=== PATIENT | female | born 1975 | race Two or more races ===

== ENCOUNTER 2023-08-31 16:04 | Emergency (ER) | payer BC ==
[~2023-08-31] VITALS: Ht 154.9 cm; Wt 117.0 kg
[~2023-08-31 16:04] MED LIST: BUPR1FIL SL
[2023-08-31 16:52] VITALS: TEMP 98.6
[2023-08-31 17:30] LABS: BASOPHILS # (AUTO) 0.1 K/uL (0.0-0.2); BASOPHILS % (AUTO) 1.1 % (0.0-2.0); EOSINOPHILS # (AUTO) 0.2 K/uL (0.0-0.7); EOSINOPHILS % (AUTO) 2.8 % (0.0-6.0); HEMATOCRIT 40 % (33-45); HEMOGLOBIN 13.2 g/dL (11.5-14.8); LYMPHOCYTES # (AUTO) 1.7 K/uL (0.8-4.8); LYMPHOCYTES % (AUTO) 25.3 % (20.0-44.0); MEAN CORPUSCULAR HEMOGLOBIN 28 PG (26.0-33.0); MEAN CORPUSCULAR HGB CONC 33 g/dl (31.0-36.0); MEAN CORPUSCULAR VOLUME 85 fL (82-100); MONOCYTES # (AUTO) 0.7 K/uL (0.1-1.30); MONOCYTES % (AUTO) 11.1 % (2.0-12.0); NEUTROPHILS % (AUTO) 59.7 % (43.0-81.0); PLATELET COUNT (AUTO) 295 K/uL (150-450); RED BLOOD CELL COUNT(AUTO) 4.68 MIL/uL (4.0-5.2); RED CELL DISTRIBUTION WIDTH 15.8 % (11.5-15.0); WHITE BLOOD COUNT (AUTO) 6.7 K/uL (4.3-11.0)
[2023-08-31 17:37] LABS: CALCIUM, SERUM 8.7 mg/dL (8.5-10.1); CARBON DIOXIDE 29 mmol/L (21-32); CHLORIDE 103 mmol/L (98-107); CREATININE 0.9 mg/dL (0.6-1.3); GLUCOSE 96 mg/dL (74-106); SODIUM SERUM 134 mmol/L (136-145); UREA NITROGEN, BLOOD 12 mg/dL (7-18)
[2023-08-31 17:50] LABS: NT-PRO BNP 162 pg/mL (0-125)
[2023-08-31] MEDS ORDERED: METH750T3 PO (18:17)
[2023-08-31] MEDS ORDERED: ALBU18HF2 IH (18:17)
[2023-08-31] MEDS ORDERED: FURO20TA4 PO (18:17)
[2023-08-31] MEDS ORDERED: LAMO25TA5 PO (18:17)
[2023-08-31] MEDS ORDERED: QUET50TA PO (18:17)
[2023-08-31] MEDS ORDERED: CLON0.1T PO (18:17)
[2023-08-31] MEDS ORDERED: FLUT1DIS3 IH (18:17)
[2023-08-31] MEDS ORDERED: ONDA8TAB65 PO (18:17)
[2023-08-31] MEDS ORDERED: DOXE50CA4 PO (18:17)
[2023-08-31] MEDS: hydrALAZINE HCL IV 20 MG VIAL IV ONE (18:30)
[2023-08-31] MEDS ORDERED: hydrALAZINE HCL IV 20 MG VIAL ONE (18:35)
[2023-08-31] MEDS ORDERED: FUROSEMIDE 20 MG/2 ML VIAL ONE (19:56)
[2023-08-31] MEDS: FUROSEMIDE 20 MG/2 ML VIAL IV ONE (19:58)
[2023-08-31 20:34] VITALS: BP 160/110; O2SAT 99
== END 2023-08-31 20:00 | disposition left against medical advice (07) ==
LOC: ER 16:12
DX: I16.0 Hypertensive urgency (principal); R60.1 Generalized edema; E87.70 Fluid overload, unspecified; F19.10 Other psychoactive substance abuse, uncomplicated; F17.200 Nicotine dependence, unspecified, uncomplicated; R63.5 Abnormal weight gain; Z68.42 Body mass index [BMI] 45.0-49.9, adult
CPT/HCPCS: 99285; 96374; 71045; 93005; 85025; 80048; 36415; 84484; 83880; J1940; J0360